=== PATIENT | female | born 1990 | race Caucasian/White ===

== ENCOUNTER 2017-07-25 19:51 | Emergency (ER) | payer SELFPAY ==
--- NOTE | 2017-07-25 20:20 | NUR ---
CALLED PT TO TRIAGE AND NO ANSWER
--- NOTE | 2017-07-25 20:35 | NUR ---
CALLED PT TO BE TRIAGE BUT NO ANSWER
--- NOTE | 2017-07-25 20:45 | NUR ---
PT LEFT PRIOR TO BEING TRIAGED
== END 2017-07-25 20:20 | disposition left against medical advice (07) ==
LOC: SED 19:51
DX: R68.89 Other general symptoms and signs (principal); Z53.21 Procedure and treatment not carried out due to patient leaving prior to being seen by health care provider